=== PATIENT | male | born 1945 | race Caucasian/White ===

== ENCOUNTER 2020-11-08 14:35 | Inpatient (IN) | payer MEDICARE, OTHER ==
[~2020-11-08] VITALS: Ht 182.9 cm; Wt 80.7 kg
--- NOTE | 2020-11-08 15:27 | NUR ---
PT IS IN ROOM #2A. DR CORTES EVALUATED THE PT.
[2020-11-08 15:39] LABS: BASOPHILS # (AUTO) 0.1 K/uL (0.0-8.0); BASOPHILS % (AUTO) 0.7 % (0.0-2.0); EOSINOPHILS # (AUTO) 0.1 K/uL (0.0-0.7); EOSINOPHILS % (AUTO) 1.2 % (0.0-7.0); HEMATOCRIT 31.4 % (36.7-47.1); HEMOGLOBIN 10.2 g/dL (12.5-16.3); LYMPHOCYTES # (AUTO) 1.4 K/uL (20.0-40.0); LYMPHOCYTES % (AUTO) 13.2 % (20.5-51.5); MEAN CORPUSCULAR HEMOGLOBIN 29.5 uug (23.8-33.4); MEAN CORPUSCULAR HGB CONC 33 g/dL (32.5-36.3); MEAN CORPUSCULAR VOLUME 90.5 fL (73.0-96.2); MONOCYTES # (AUTO) 0.7 K/uL (2.0-10.0); MONOCYTES % (AUTO) 6.7 % (0.0-11.0); NEUTROPHILS # (AUTO) 8.6 K/uL (1.8-8.9); NEUTROPHILS % (AUTO) 78.2 % (38.5-71.5); PLATELET COUNT (AUTO) 238 K/uL (152-348); RED BLOOD CELL COUNT(AUTO) 3.47 MIL/uL (4.06-5.63)
[2020-11-08] MEDS ORDERED: ACETAMINOPHEN 650 MG/20.3 ML LIQUID UDC PO ONE (15:45)
[2020-11-08] MEDS ORDERED: FUROSEMIDE 40 MG/4 ML VIAL IV ONE (15:45)
[2020-11-08] MEDS ORDERED: ACETAMINOPHEN ES 500 MG TABLET ONE (15:47)
[2020-11-08] MEDS ORDERED: FUROSEMIDE 40 MG/4 ML VIAL ONE (15:47)
[2020-11-08 15:58] LABS: CREATININE 1.1 mg/dL (0.6-1.3); POTASSIUM 3.8 mmol/L (3.5-5.1)
[2020-11-08 16:13] LABS: BILIRUBIN,DIRECT 0.2 mg/dL (0.0-0.2); BILIRUBIN,TOTAL 0.7 mg/dL (0.2-1.0); TOTAL PROTEIN, SERUM 7.1 g/dL (6.4-8.2)
--- NOTE | 2020-11-08 19:45 | NUR ---
Mare Burrows [employer]USS[employer] is consultant for [facility] here to eval patient. She is requesting to transfer patient HASMUKH to 3rd floor on non covid area. Called 3rd floor to attempt expedite transfer.
[2020-11-08] MEDS ORDERED: CEFTRIAXONE 1 G in IV DEXTROSE 5% 50 ML IV SCH (20:00)
[2020-11-08 20:10] LABS: *BILIRUBIN,URIN NEGATIVE (NEGATIVE); *CLARITY,URINE CLEAR (CLEAR); *COLOR,URINE YELLOW (YELLOW); *KETONES,URINE NEGATIVE (NEGATIVE); *UROBILINOGEN,URINE 0.2 E.U./dl (NORMAL); LEUKOCYTE ESTERASE ,URINE NEGATIVE (NEGATIVE); NITRITE, URINE NEGATIVE (NEGATIVE); UGLUCOSE NEGATIVE (NEGATIVE)
[2020-11-08 20:12] LABS: *BLOOD, URINE TRACE LYSED (NEGATIVE)
[2020-11-08 22:00] VITALS: BP 104/68
[2020-11-08] MEDS ORDERED: CEFTRIAXONE /D5W 50ML IVPB **ER PYXIS IV ONE (22:18)
[2020-11-08] MEDS: ATORVASTATIN 40 MG TABLET PO SCH (23:09)
[2020-11-08 23:31] LABS: BACTERIA,URINE FEW /HPF (NONE SEEN); MUCUS,URINE FEW /LPF (0-FEW); RBC,URINE 0-3 /HPF (0-3); SQUAMOUS EPITHELIAL CELL,UR FEW /HPF (NONE SEEN)
[2020-11-09] VITALS: BP 134/63
--- NOTE | 2020-11-09 00:24 | NUR ---
Pt arrived in the unit at 2145 via [employer]. AAO x3, but forgetful at times. On 2L O2 via NC, no acute distress noted. Denies CP, SOB. Denies pain/ discomfort. Due med given as ordered. IV on left upper arm #22, patent and intact. Pt has halter monitor. 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 Lab reported critical lab trop 1.808, notified Markos [place]. Trop trending down. Wound dressing intact on anterior chest. On 1,500 mL fluid restriction. Pertinent assessment done. Oriented pt to room and equipment. Safety measures maintained. Call light and personal items within reach. Will continue to monitor.
[2020-11-09] MEDS ORDERED: ACETAMINOPHEN 325 MG TABLET PO PRN (03:30)
[2020-11-09 04:16] VITALS: BP 130/72
[2020-11-09] MEDS: ASPIRIN 81 MG TAB.CHEW PO SCH (08:52)
[2020-11-09] MEDS ORDERED: CLOPIDOGREL 75 MG TABLET PO SCH (09:00)
[2020-11-09 11:12] VITALS: BP 92/57
[2020-11-09 11:39] LABS: BASOPHILS # (AUTO) 0.1 K/uL (0.0-8.0); BASOPHILS % (AUTO) 0.9 % (0.0-2.0); EOSINOPHILS # (AUTO) 0.1 K/uL (0.0-0.7); EOSINOPHILS % (AUTO) 0.6 % (0.0-7.0); HEMATOCRIT 30.1 % (36.7-47.1); HEMOGLOBIN 10.5 g/dL (12.5-16.3); LYMPHOCYTES # (AUTO) 1.7 K/uL (20.0-40.0); LYMPHOCYTES % (AUTO) 19.5 % (20.5-51.5); MEAN CORPUSCULAR HEMOGLOBIN 31.4 uug (23.8-33.4); MEAN CORPUSCULAR HGB CONC 35 g/dL (32.5-36.3); MEAN CORPUSCULAR VOLUME 89.5 fL (73.0-96.2); MONOCYTES # (AUTO) 0.6 K/uL (2.0-10.0); NEUTROPHILS # (AUTO) 6.5 K/uL (1.8-8.9); PLATELET COUNT (AUTO) 256 K/uL (152-348); RED BLOOD CELL COUNT(AUTO) 3.36 MIL/uL (4.06-5.63)
[2020-11-09 11:50] LABS: BILIRUBIN,TOTAL 0.7 mg/dL (0.2-1.0); CREATININE 1.2 mg/dL (0.6-1.3); POTASSIUM 4.2 mmol/L (3.5-5.1); TOTAL PROTEIN, SERUM 6.8 g/dL (6.4-8.2)
[2020-11-09] MEDS: METOPROLOL SUCCINATE XL 25 MG TAB.SR.24H PO SCH ×2 (12:00→12:31)
[2020-11-09] MEDS: APIXABAN 5 MG TABLET PO SCH (12:16)
[2020-11-09] MEDS ORDERED: IV NORMAL SALINE 250 ML IV ONE ×2 (14:15→17:00)
[2020-11-09 15:30] VITALS: BP 101/65
[2020-11-09 20:00] VITALS: BP 103/63
[2020-11-09 20:18] VITALS: BP 103/63
[2020-11-09] MEDS ORDERED: ENOXAPARIN SODIUM 30 MG/0.3 ML DISP.SYRIN SQ SCH (21:00)
[2020-11-10] VITALS (7 sets, daily range): BP systolic 87–120; BP diastolic 52–72
[2020-11-10] MEDS ORDERED: CEFTRIAXONE 1 G in IV DEXTROSE 5% 50 ML IV SCH (01:00)
[2020-11-10] MEDS: ATORVASTATIN 40 MG TABLET PO SCH ×2 (01:04→20:13)
[2020-11-10] MEDS: APIXABAN 5 MG TABLET PO SCH ×2 (01:05→11:02)
[2020-11-10] MEDS ORDERED: CEFTRIAXONE /D5W 50ML IVPB **ER PYXIS IV ONE (02:39)
[2020-11-10 06:09] LABS: BASOPHILS % (AUTO) 0.3 % (0.0-2.0); EOSINOPHILS # (AUTO) 0.2 K/uL (0.0-0.7); EOSINOPHILS % (AUTO) 2.6 % (0.0-7.0); HEMATOCRIT 27.7 % (36.7-47.1); HEMOGLOBIN 9.6 g/dL (12.5-16.3); LYMPHOCYTES # (AUTO) 1.8 K/uL (20.0-40.0); LYMPHOCYTES % (AUTO) 24.5 % (20.5-51.5); MEAN CORPUSCULAR HEMOGLOBIN 32.2 uug (23.8-33.4); MEAN CORPUSCULAR HGB CONC 35 g/dL (32.5-36.3); MONOCYTES # (AUTO) 0.5 K/uL (2.0-10.0); MONOCYTES % (AUTO) 6.8 % (0.0-11.0); NEUTROPHILS # (AUTO) 4.8 K/uL (1.8-8.9); NEUTROPHILS % (AUTO) 65.8 % (38.5-71.5); PLATELET COUNT (AUTO) 287 K/uL (152-348); RED BLOOD CELL COUNT(AUTO) 2.98 MIL/uL (4.06-5.63); WHITE BLOOD COUNT (AUTO) 7.3 K/uL (3.6-10.2)
[2020-11-10 07:06] LABS: CREATININE 1.2 mg/dL (0.6-1.3); MAGNESIUM 2.3 mg/dL (1.8-2.4); PHOSPHOROUS 3.2 mg/dL (2.5-4.9)
[2020-11-10 07:42] LABS: POTASSIUM 4.1 mmol/L (3.5-5.1)
--- NOTE | 2020-11-10 09:05 | NUR ---
UNEVENTFUL NOC, SLEPT WELL. DUE MEDS GIVEN , FAMILY DEMONDTRATED UNDERSTANDING OF WHY PT HAS TO STAY IN HOSPITAL .NEEDS ATTENDED TO. ON TELE SR 93. NO ACUTE DISTRESS NOTED' NOTED.
[2020-11-10] MEDS: ASPIRIN 81 MG TAB.CHEW PO SCH (11:01)
[2020-11-10] MEDS ORDERED: METOPROLOL SUCCINATE XL 25 MG TAB.SR.24H PO SCH (12:30)
[2020-11-10] MEDS ORDERED: APIX5TAB PO (16:20)
[2020-11-10] MEDS ORDERED: METO-356 PO (16:20)
[2020-11-10] MEDS ORDERED: ATOR40TA PO (16:20)
[2020-11-10] MEDS ORDERED: ASPI81TA31 PO (16:20)
[2020-11-10] MEDS ORDERED: AZIT500T2 PO (16:20)
== END 2020-11-10 21:00 | disposition home or self-care (01) | DRG 280 ==
LOC: ER 14:35 → TELE3 21:15
PROVIDERS: ADMIT Registered Nurse; ATTEND Registered Nurse
DX: I50.23 Acute on chronic systolic (congestive) heart failure (principal); J18.9 Pneumonia, unspecified organism; I21.A1 Myocardial infarction type 2; I95.1 Orthostatic hypotension; I25.5 Ischemic cardiomyopathy; I25.10 Atherosclerotic heart disease of native coronary artery without angina pectoris; E11.9 Type 2 diabetes mellitus without complications; Z95.1 Presence of aortocoronary bypass graft; I51.3 Intracardiac thrombosis, not elsewhere classified; Z86.16 Personal history of COVID-19; Z20.822 Contact with and (suspected) exposure to COVID-19
CPT/HCPCS: 36415; 70030-TC; 70450; 71045; 83605; 83735; 84100; 85025; 85730; 87040; 87086; 93005; 93307; A4663; A9150; G0378; J0696; J1940; J7030; J7050; J7060